=== PATIENT | male | born 1985 | race Caucasian/White ===

== ENCOUNTER 2016-12-04 20:27 | Emergency (ER) | payer SELFPAY ==
[~2016-12-04] VITALS: Ht 188 cm; Wt 75.0 kg
[2016-12-04 20:34] VITALS: TEMP 98.3
[2016-12-04] MEDS ORDERED: ZOLOFT 50MG50 MG PO (20:36)
[2016-12-04 20:53] LABS: PH 5 (5-8); SQUAMOUS EPITHELIAL 0-2 /hpf; URINE APPEARANCE Clear; URINE BACTERIA None Seen /hpf; URINE BILIRUBIN Negative (NEGATIVE); URINE BLOOD 2+ (NEGATIVE); URINE COLOR Yellow; URINE GLUCOSE Negative (NEGATIVE); URINE KETONE Negative (NEGATIVE); URINE UROBILINOGEN Negative (NEGATIVE); URINE WBC 0-2 /hpf
[2016-12-04 21:01] LABS: BASO # 0.1 (0.0-0.2); BASO % 0.6 % (0.0-2.0); EOS # 0.3 (0.0-0.7); EOS % 3.1 % (0-4.0); GRAN # 6.3 (1.4-6.5); GRAN % 66.2 % (42.2-75.2); HEMATOCRIT 42.9 % (42.0-52.0); HEMOGLOBIN 14.4 g/dl (13.5-18.0); LYMPH % 21.3 % (20.0-51.0); MEAN CELL VOLUME 84 fl (80.0-100.0); MEAN CORPUSCULAR HEMOGLOBIN 28 pg (27.0-31.0); MEAN CORPUSCULAR HGB CONC 34 g/dl (33.0-37.0); MEAN PLATELET VOLUME 10.1 fl (7.4-10.4); MONO # 0.8 (0.1-0.6); MONO % 8.6 % (1.7-9.3); PLATELET COUNT 249 K/mm3 (130-400); REDCELL DISTRIBUTION WIDTH-CV 11.9 % (11.5-14.5); WHITE BLOOD COUNT 9.5 K/mm3 (4.8-10.8)
[2016-12-04 21:09] LABS: AMPHETAMINE URINE NEGATIVE; BARBITURATES URINE NEGATIVE; BENZODIAZEPINES URINE NEGATIVE; BUPRENORPHINE URINE NEGATIVE; METHADONE URINE NEGATIVE; OPIATES URINE NEGATIVE; OXYCODONE URINE NEGATIVE; PHENCYCLIDINE URINE NEGATIVE; PROPOXYPHENE URINE NEGATIVE; THC CANNABINOIDS URINE NEGATIVE
[2016-12-04 21:13] LABS: ANION GAP 11 mmol/L (7-16); BLOOD UREA NITROGEN 12 mg/dL (9-20); CALCIUM 8.9 mg/dL (8.4-10.2); CARBON DIOXIDE 27 mmol/L (22-30); CHLORIDE 101 mmol/L (98-107); CREATININE, serum 0.76 mg/dL (0.66-1.25); GLUCOSE 99 mg/dL (74-106); POTASSIUM 3.4 mmol/L (3.4-5.0); SODIUM 139 mmol/L (137-145)
[2016-12-04 21:21] LABS: ACETAMINOPHEN < 10 ug/mL (10-30); SALICYLATE < 1.0 mg/dL
[2016-12-05 03:51] VITALS: BP 116/77; PULSE 60
== END 2016-12-05 03:51 | disposition home or self-care (01) ==
LOC: COL.ER 20:27
PROVIDERS: Emergency Medicine
DX: F32.9 Major depressive disorder, single episode, unspecified (principal); R45.851 Suicidal ideations

== ENCOUNTER 2017-04-02 16:41 | Emergency (ER) | payer SELFPAY ==
[~2017-04-02] VITALS: Ht 5.1 cm; Wt 72.7 kg
[~2017-04-02 16:41] MED LIST: ZOLOFT 50MG50 MG PO
[2017-04-02 16:42] VITALS: TEMP 97.7
[2017-04-02] MEDS ORDERED: LAMICTAL 25MG T25 MG PO (16:45)
[2017-04-02] MEDS ORDERED: AMITRIPTYLINE H25 M1 PO (16:45)
[2017-04-02] MEDS ORDERED: DEPAKOTE 250MG250 MG PO (16:46)
[2017-04-02] MEDS ORDERED: ATIVAN 0.50.5 MG/TAB PO (16:46)
[2017-04-02 18:51] LABS: BASO # 0.1 (0.0-0.2); BASO % 0.7 % (0.0-2.0); EOS # 0.4 (0.0-0.7); EOS % 3.1 % (0-4.0); GRAN # 8.7 (1.4-6.5); GRAN % 70.5 % (42.2-75.2); HEMATOCRIT 41.6 % (42.0-52.0); HEMOGLOBIN 13.6 g/dl (13.5-18.0); LYMPH # 2.2 (1.2-3.4); LYMPH % 17.7 % (20.0-51.0); MEAN CELL VOLUME 86 fl (80.0-100.0); MEAN CORPUSCULAR HEMOGLOBIN 28 pg (27.0-31.0); MEAN CORPUSCULAR HGB CONC 33 g/dl (33.0-37.0); MEAN PLATELET VOLUME 10.4 fl (7.4-10.4); MONO # 0.9 (0.1-0.6); MONO % 7.6 % (1.7-9.3); PLATELET COUNT 268 K/mm3 (130-400); RED BLOOD COUNT 4.84 M/mm3 (4.20-5.60); WHITE BLOOD COUNT 12.4 K/mm3 (4.8-10.8)
[2017-04-02 19:01] LABS: ADJUSTED CALCIUM 8.6 mg/dL (8.4-10.2); ALANINE AMINOTRANSFERASE 29 U/L (21-72); ALBUMIN 4.5 gm/dL (3.5-5.0); ALKALINE PHOSPHATASE 53 U/L (50-136); ANION GAP 10 mmol/L (7-16); BILIRUBIN,TOTAL 0.7 mg/dL (0.0-1.0); BLOOD UREA NITROGEN 15 mg/dL (9-20); CARBON DIOXIDE 27 mmol/L (22-30); CHLORIDE 102 mmol/L (98-107); CREATININE, serum 0.81 mg/dL (0.66-1.25); GLUCOSE 87 mg/dL (74-106); POTASSIUM 4.1 mmol/L (3.4-5.0); SODIUM 139 mmol/L (137-145); TOTAL PROTEIN 7.3 gm/dL (6.4-8.2)
[2017-04-02 19:23] LABS: TROPONIN-I < 0.012 ng/mL (0.000-0.034)
[2017-04-02 19:47] VITALS: BP 123/92; PULSE 91
== END 2017-04-02 19:52 | disposition home or self-care (01) ==
LOC: COL.ER 16:41
PROVIDERS: Emergency Medicine
DX: R07.9 Chest pain, unspecified (principal); F31.9 Bipolar disorder, unspecified; F17.210 Nicotine dependence, cigarettes, uncomplicated; Z90.89 Acquired absence of other organs
CPT/HCPCS: J1885

== ENCOUNTER 2018-04-17 16:40 | Emergency (ER) | payer SELFPAY ==
[~2018-04-17] VITALS: Ht 188 cm; Wt 72.7 kg
[~2018-04-17 16:40] MED LIST changes: +AMITRIPTYLINE H25 M1 PO; +ATIVAN 0.50.5 MG/TAB PO; +DEPAKOTE 250MG250 MG PO; +LAMICTAL 25MG T25 MG PO
[2018-04-17 16:43] VITALS: BP 131/76; TEMP 98.6
[2018-04-17] MEDS ORDERED: LATUDA60 MG PO (16:46)
[2018-04-17 17:41] VITALS: PULSE 88
== END 2018-04-17 17:49 | disposition home or self-care (01) ==
LOC: COL.ER 16:40
DX: S40.012A Contusion of left shoulder, initial encounter (principal); F31.9 Bipolar disorder, unspecified; F17.210 Nicotine dependence, cigarettes, uncomplicated; W20.8XXA Other cause of strike by thrown, projected or falling object, initial encounter; Y99.0 Civilian activity done for income or pay

== ENCOUNTER 2018-04-29 12:56 | Emergency (ER) | payer SELFPAY ==
[~2018-04-29] VITALS: Ht 188 cm; Wt 70.6 kg
[~2018-04-29 12:56] MED LIST changes: +LATUDA60 MG PO
[2018-04-29 13:16] VITALS: BP 117/62; PULSE 80; TEMP 97.8
== END 2018-04-29 14:30 | disposition home or self-care (01) ==
LOC: COL.ER 12:56
DX: M25.512 Pain in left shoulder (principal)

== ENCOUNTER 2018-06-05 13:33 | Outpatient (RCR) | payer OTHER | END 2018-06-05 14:44 | disposition home or self-care (01) | LOC: WSOH 13:33 | DX: S40.012D Contusion of left shoulder, subsequent encounter (principal); W20.8XXD Other cause of strike by thrown, projected or falling object, subsequent encounter; Z79.899 Other long term (current) drug therapy; Z87.891 Personal history of nicotine dependence ==

== ENCOUNTER 2018-06-12 21:58 | Emergency (ER) | payer SELFPAY ==
[~2018-06-12] VITALS: Ht 188 cm; Wt 72.7 kg
[2018-06-12 22:05] VITALS: BP 133/78; TEMP 98.5
[2018-06-12] MEDS ORDERED: ZITHROMAX Z PA250 MG PO (23:35)
[2018-06-13] VITALS: PULSE 89
== END 2018-06-13 | disposition home or self-care (01) ==
LOC: COL.ER 21:58
DX: J20.9 Acute bronchitis, unspecified (principal); F17.210 Nicotine dependence, cigarettes, uncomplicated